=== PATIENT | male | born 1960 | race Caucasian/White ===

== ENCOUNTER 2023-08-22 16:09 | Emergency (ER) | payer SELFPAY ==
[2023-08-22] MEDS: Ketorolac 60 MG/2 ML SDV IM ONE (16:56)
[2023-08-22] MEDS: Gabapentin 300 MG Cap PO ONE (16:57)
== END 2023-08-22 18:48 | disposition home or self-care (01) ==
LOC: JD.ED 16:09
DX: S93.402A Sprain of unspecified ligament of left ankle, initial encounter (principal); S73.102A Unspecified sprain of left hip, initial encounter; X58.XXXA Exposure to other specified factors, initial encounter; F17.210 Nicotine dependence, cigarettes, uncomplicated
CPT/HCPCS: 73502-26-LT; 73502-LT; 73610-26-LT; 73610-LT; 96372; 99283; A9270-GY; J1885

== ENCOUNTER 2023-09-02 14:49 | Emergency (ER) | payer SELFPAY ==
[2023-09-02] MEDS: Ketorolac 60 MG/2 ML SDV IM ONE (15:22)
== END 2023-09-02 17:35 | disposition home or self-care (01) ==
LOC: JD.ED 14:49
DX: M25.552 Pain in left hip (principal); G89.29 Other chronic pain; Z79.899 Other long term (current) drug therapy
CPT/HCPCS: 96372; 99283; 99284; J1885

== ENCOUNTER 2023-10-13 05:50 | Day surgery (SDC) | payer MEDICAID ==
[~2023-10-13 05:50] MED LIST: Sodium Chloride 0.9% 10 ML Syringe FLUSH PRN; Sodium Chloride 0.9% 10 ML Syringe FLUSH SCH
[2023-10-13] MEDS ORDERED: Midazolam 1 MG/ML 2 ML SDV ONE ×2 (06:02→06:15)
[2023-10-13] MEDS ORDERED: Propofol 200 MG/20 ML SDV ONE (06:15)
[2023-10-13] MEDS ORDERED: Ondansetron 4 MG/2 ML SDV ONE ×2 (06:15→06:16)
[2023-10-13] MEDS: Lactated Ringers 1,000 ML IV SCH (06:15)
[2023-10-13] MEDS: oxyCODONE ER 10 MG TAB.ER PO SCH (06:25)
[2023-10-13] MEDS: Acetaminophen 325 MG Tab PO SCH (06:26)
[2023-10-13] MEDS: Pregabalin 25 MG Cap PO SCH (06:26)
[2023-10-13] MEDS ORDERED: ceFAZolin 2 GM Vial ONE (07:15)
[2023-10-13] MEDS: Tranexamic Acid 1,000 MG/10 ML Vial ONE (08:14)
[2023-10-13] MEDS: Morphine 8 MG, EPINEPHrine 0.3 MG, Cefuroxime 750 MG, Ketorolac 30 MG, Sodium Chloride ... PRN (08:14)
[2023-10-13] MEDS: Vancomycin 1 GM SDV ONE (08:14)
[2023-10-13] MEDS: oxyCODONE 5 MG Tab PO PRN (12:00)
== END 2023-10-13 14:32 | disposition home or self-care (01) ==
LOC: JD.SDS 05:50
PROVIDERS: ATTEND Orthopaedic Surgery
DX: M16.12 Unilateral primary osteoarthritis, left hip (principal); F17.200 Nicotine dependence, unspecified, uncomplicated
CPT/HCPCS: 0055T; 27130; 36415; 73501; 86850; 86900; 86901; 97110; 97161; A9270; C1713; C1776; J0171; J0690; J0697; J1885; J2250; J2270; J2405; J2704; J3370; J7120; 01214; J3490